=== PATIENT | female | born 2000 | race Asian ===

== ENCOUNTER 2025-01-07 13:17 | Emergency (ER) | payer MEDICAID ==
[~2025-01-07] VITALS: Ht 165.1 cm; Wt 60.0 kg
[2025-01-07 13:25] VITALS: O2SAT 100
[2025-01-07] MEDS ORDERED: FLUORESCEIN SODIUM 1MG/STRIP RIGHTEYE ONE (15:15)
[2025-01-07] MEDS ORDERED: TETRACAINE 0.5% OPHTH DROPS 4ML RIGHTEYE ONE (15:15)
[2025-01-07] MEDS: FLUORESCEIN SODIUM 1MG/STRIP RIGHTEYE NR (17:11)
[2025-01-07] MEDS: TETRACAINE 0.5% OPHTH DROPS 4ML RIGHTEYE NR (17:11)
[2025-01-07 17:45] VITALS: BP 130/97; PULSE 74; RESP 14; TEMP 37.1; O2SAT 100
== END 2025-01-07 17:46 | disposition home or self-care (01) ==
LOC: ER 13:17
DX: T15.91XA Foreign body on external eye, part unspecified, right eye, initial encounter (principal); W44.9XXA Unspecified foreign body entering into or through a natural orifice, initial encounter; Y93.89 Activity, other specified; Y92.89 Other specified places as the place of occurrence of the external cause; Y99.8 Other external cause status
CPT/HCPCS: 99283